=== PATIENT | female | born 1970 | race African-American/Black ===

== ENCOUNTER 2016-12-19 06:00 | Emergency (ER) | payer SELFPAY ==
[~2016-12-19] VITALS: Ht 160 cm; Wt 124.7 kg
[~2016-12-19 06:00] MED LIST: ASPIRIN81 M2 PO; FEOSOL325 MG PO; GLIPIZIDE5 MG PO; INVOKANA100 MG PO; LIPITOR10 MG PO; METFORMIN HCL850 MG PO; MOTRIN600 MG PO; Magic Mouthwash Garg MM; NAPROSYN500 MG PO; NEXIUM40 MG PO; ZANTAC75 M1 PO
[2016-12-19 06:40] LABS: EOSINOPHIL (%) 1.5 % (0-5); EOSINOPHIL COUNT 0.2 K/uL (0-0.3); HEMATOCRIT 32.7 % (36.0-46.0); IMMATURE GRANULOCYTE (%) 0.2 % (0.0-0.7); INSTRUMENT ABS NEUTROPHIL CT 6.8 K/uL; MCH 23.2 PG (29.0-34.0); MCHC 31.2 G/DL (30.0-36.0); MCV 74.3 FL (83-99); MEAN PLAT.VOLUME 9.5 uM^3 (9.5-12.4); MONOCYTE (%) 8.3 % (3-12); MONOCYTE COUNT 0.8 K/uL (0-0.8); NEUTROPHIL (%) 69.2 % (45-76); NEUTROPHIL COUNT 6.8 K/uL (1.8-6.4); PLATELET COUNT 301 K/uL (156-360); RBC DIS.WIDTH-SD 45.2 % (39-53); WHITE BLOOD COUNT 9.8 K/uL (4.1-10.2)
[2016-12-19 06:42] LABS: CHLORIDE 106 mEq/L (99-109)
[2016-12-19 06:43] LABS: POTASSIUM 3.9 mEq/L (3.7-5.4); SODIUM 138 mEq/L (136-147)
[2016-12-19 06:44] LABS: GLUCOSE 109 mg/dL (70-99)
[2016-12-19 06:46] LABS: ANION GAP 8 MEQ/L (2-14)
[2016-12-19 06:48] LABS: GFR ESTIMATE (CALCULATED) > 59 mL/min/
[2016-12-19 06:49] LABS: UREA NITROGEN (BUN) 12 mg/dL (9-23)
[2016-12-19] MEDS ORDERED: KEFLEX500 MG PO (06:56)
[2016-12-19] MEDS ORDERED: IRON325 MG PO (07:08)
[2016-12-19 07:09] VITALS: BP 161/103
[2016-12-19] MEDS ORDERED: GLUCOPHAGE850 MG PO (07:09)
== END 2016-12-19 07:13 | disposition home or self-care (01) ==
LOC: EME 06:00
PROVIDERS: Emergency Medicine
DX: L03.115 Cellulitis of right lower limb (principal); E11.9 Type 2 diabetes mellitus without complications; E78.5 Hyperlipidemia, unspecified; K21.9 Gastro-esophageal reflux disease without esophagitis
CPT/HCPCS: 80048; 85025; 99281; 99284

== ENCOUNTER 2016-12-23 22:00 | Emergency (ER) | payer SELFPAY ==
[~2016-12-23] VITALS: Ht 160 cm; Wt 125.6 kg
[~2016-12-23 22:00] MED LIST changes: +GLUCOPHAGE850 MG PO; +IRON325 MG PO; +KEFLEX500 MG PO
[2016-12-23] MEDS ORDERED: ASPIR 8181 M1 PO (22:51)
[2016-12-23 23:14] LABS: HEMATOCRIT 32.7 % (36.0-46.0); MCHC 30.9 G/DL (30.0-36.0); MCV 74.3 FL (83-99); MEAN PLAT.VOLUME 9.8 uM^3 (9.5-12.4); PLATELET COUNT 305 K/uL (156-360); RBC DIS.WIDTH-CV 17.2 % (11.8-14.6); WHITE BLOOD COUNT 11.5 K/uL (4.1-10.2)
[2016-12-23 23:15] LABS: CHLORIDE 105 mEq/L (99-109); SODIUM 137 mEq/L (136-147)
[2016-12-23 23:17] LABS: GLUCOSE 119 mg/dL (70-99)
[2016-12-23 23:18] LABS: ANION GAP 10 MEQ/L (2-14)
[2016-12-23 23:19] LABS: TOTAL BILIRUBIN 0.3 mg/dL (0.0-1.0)
[2016-12-23 23:21] LABS: ALKALINE PHOSPHATASE 64 IU/L (3-129); GFR ESTIMATE (CALCULATED) > 59 mL/min/
[2016-12-23 23:22] LABS: UREA NITROGEN (BUN) 14 mg/dL (9-23)
[2016-12-24] MEDS ORDERED: CLEOCIN300 MG PO (00:36)
[2016-12-24 00:57] VITALS: BP 152/81
== END 2016-12-24 00:57 | disposition home or self-care (01) ==
LOC: EME 22:00
PROVIDERS: Physician Assistant
DX: L03.115 Cellulitis of right lower limb (principal); I89.1 Lymphangitis; E11.9 Type 2 diabetes mellitus without complications; E78.5 Hyperlipidemia, unspecified; K21.9 Gastro-esophageal reflux disease without esophagitis; Z79.84 Long term (current) use of oral hypoglycemic drugs
CPT/HCPCS: 80053; 85027; 93971; 99281; 99284

== ENCOUNTER → 2017-01-02 | Outpatient (CLI) | payer SELFPAY ==
[~2017-01-02] MED LIST changes: +ASPIR 8181 M1 PO; +CLEOCIN300 MG PO
== END | disposition home or self-care (01) ==
LOC: RAD 10:40
DX: M15.0 Primary generalized (osteo)arthritis (principal); R93.6 Abnormal findings on diagnostic imaging of limbs; M25.561 Pain in right knee; M79.651 Pain in right thigh
CPT/HCPCS: 73552; 73560

== ENCOUNTER → 2017-02-20 | Outpatient (CLI) | payer SELFPAY | END | disposition home or self-care (01) | LOC: RAD 15:53 | DX: M47.896 Other spondylosis, lumbar region (principal); M16.0 Bilateral primary osteoarthritis of hip | CPT/HCPCS: 72100 ==

== ENCOUNTER 2018-03-09 18:54 | Emergency (ER) | payer MEDICARE ==
[~2018-03-09] VITALS: Ht 160 cm; Wt 129.6 kg
[2018-03-09 19:31] LABS: HEMATOCRIT 34.5 % (36.0-46.0); MCH 24.7 PG (29.0-34.0); MCHC 31.9 G/DL (30.0-36.0); MCV 77.5 FL (83-99); PLATELET COUNT 292 K/uL (156-360); RBC DIS.WIDTH-CV 16.1 % (11.8-14.6); RBC DIS.WIDTH-SD 45.8 % (39-53); RED BLOOD COUNT 4.45 M/uL (3.80-5.20); WHITE BLOOD COUNT 12.4 K/uL (4.1-10.2)
[2018-03-09 19:39] LABS: CHLORIDE 101 mEq/L (99-109); POTASSIUM 4.1 mEq/L (3.7-5.4); SODIUM 136 mEq/L (136-147)
[2018-03-09 19:41] LABS: GLUCOSE 87 mg/dL (70-99)
[2018-03-09 19:45] LABS: CREATININE 0.7 mg/dL (0.6-1.3); GFR ESTIMATE (CALCULATED) > 59 mL/min/
[2018-03-09 19:46] LABS: UREA NITROGEN (BUN) 13 mg/dL (9-23)
[2018-03-09 19:52] LABS: TROP-I INTERPRETATION NEGATIVE; TROPONIN-I < 0.01 ng/mL (0.0-0.30)
[2018-03-09 23:10] VITALS: BP 135/75
== END 2018-03-09 23:35 | disposition home or self-care (01) ==
LOC: EME 18:54
PROVIDERS: Emergency Medicine
DX: R07.9 Chest pain, unspecified (principal); M25.512 Pain in left shoulder; R79.1 Abnormal coagulation profile; E78.5 Hyperlipidemia, unspecified; E11.9 Type 2 diabetes mellitus without complications; Z79.84 Long term (current) use of oral hypoglycemic drugs; Z79.82 Long term (current) use of aspirin
CPT/HCPCS: 71046; 71275; 80048; 84484; 85027; 85379; 93005; 99281; 99285; S0028